=== PATIENT | male | born 1970 | race Caucasian/White ===

== ENCOUNTER 2023-11-13 17:49 | Emergency (ER) | payer SELFPAY ==
[~2023-11-13] VITALS: Ht 175.3 cm; Wt 70.0 kg
[2023-11-13 17:53] VITALS: O2SAT 98
[2023-11-13] MEDS ORDERED: TETANUS, DIPHTHERIA, PERTUSSIS VAC/PF 0.5ML (>10YR OLD) IM ONE (18:15)
[2023-11-13 19:29] LABS: BASOPHILS % 0.7 % (0.0-2.0); EOSINOPHILS % 0.4 % (0.0-5.0); HEMATOCRIT. 37.8 % (42.0-52.0); HEMOGLOBIN. 12.4 g/dL (14.0-18.0); LYMPHOCYTES % 9.1 % (20.0-50.0); MEAN CORPUSCULAR HEMOGLOBIN 29.8 pg (28.0-32.0); MEAN CORPUSCULAR HGB CONC 32.8 g/dL (31.0-37.0); MEAN CORPUSCULAR VOLUME 90.7 fL (80.0-94.0); MEAN PLATELET VOLUME 8.5 fl (7.4-10.4); MONOCYTES % 2.5 % (2.0-8.0); NEUTROPHILS % 87.3 % (40.0-76.0); PLATELET 278 x1000/uL (130-400); RED BLOOD CELL COUNT 4.17 mill/uL (4.7-6.1); RED CELL DISTRIBUTION WIDTH 17.1 % (11.6-14.6)
[2023-11-13 19:31] LABS: CHLORIDE 107 mEq/L (98-107); POTASSIUM 2.9 mEq/L (3.5-5.1); SODIUM 141 mEq/L (136-145)
[2023-11-13 19:32] LABS: CARBON DIOXIDE 24 mEq/L (21-32)
[2023-11-13 19:33] LABS: CALCIUM 8.5 mg/dL (8.7-10.4)
[2023-11-13 19:38] LABS: CREATININE 1.2 mg/dL (0.6-1.3); ETHANOL BLOOD 289 mg/dL (<10); GLUCOSE 146 mg/dL (70-105); UREA NITROGEN BLOOD 12 mg/dL (9-23)
[2023-11-13 21:32] LABS: ALANINE AMINOTRANSFERASE 54 IU/L (10-49)
[2023-11-13 21:33] LABS: ALBUMIN 4.2 g/dL (3.2-4.8); ASPARTATE AMINOTRANSFERASE 108 IU/L (<34); BILIRUBIN DIRECT 0.2 mg/dL (<=3.0); BILIRUBIN TOTAL 0.5 mg/dL (0.1-1.0); PROTEIN TOTAL 6.9 g/dL (6.0-8.3)
[2023-11-13 21:40] LABS: TROPONIN I HIGH SENSITIVITY < 4 ng/L (3.0-53)
[2023-11-13 22:23] VITALS: TEMP 97.7
[2023-11-13] MEDS: KCL 10MEQ/50ML PREMIX 50 ML IV SCH (22:59)
[2023-11-13] MEDS: TETANUS, DIPHTHERIA, PERTUSSIS VAC/PF 0.5ML (>10YR OLD) IM ONE (23:04)
[2023-11-14] MEDS: POTASSIUM CHLORIDE 20MEQ/PACKET PO ONE (00:28)
[2023-11-14 00:38] VITALS: BP 114/78; PULSE 73; RESP 16
[2023-11-14] MEDS: ACETAMINOPHEN 325MG TABLET PO ONE (01:09)
== END 2023-11-14 05:28 | disposition home or self-care (01) ==
LOC: ER 17:49
DX: S42.491A Other displaced fracture of lower end of right humerus, initial encounter for closed fracture (principal); S01.01XA Laceration without foreign body of scalp, initial encounter; E87.6 Hypokalemia; F10.129 Alcohol abuse with intoxication, unspecified; F19.90 Other psychoactive substance use, unspecified, uncomplicated; W18.39XA Other fall on same level, initial encounter; Y93.89 Activity, other specified; Y92.89 Other specified places as the place of occurrence of the external cause; Y99.8 Other external cause status; Y90.8 Blood alcohol level of 240 mg/100 ml or more
CPT/HCPCS: 80076; 80048; 80320; 83690; 85025; 84484; 36415; 71045; 70450; 72125; 90715; 12002; 93005; 29105; 90471; 96365; 99291; 99292; 82962; 73060; 73090; J3480 ×2; Z7610 ×3; G0480